=== PATIENT | male | born 1970 | race Caucasian/White ===

== ENCOUNTER 2018-06-07 09:24 | Day surgery (SDC) | END 2018-06-07 14:30 | disposition home or self-care (01) ==

== ENCOUNTER 2018-08-29 11:13 | Day surgery (SDC) | payer BC ==
[2018-08-29] VITALS (18 sets, daily range): BP systolic 91–110; BP diastolic 53–72; PULSE 46–66; RESP 12–23; Ht 177.8 cm; Wt 91.5 kg
[~2018-08-29] VITALS: Ht 177.8 cm; Wt 91.5 kg
[~2018-08-29 11:13] MED LIST: APIX5TAB PO; DIAZEPAM 5 MG TAB PO SCH; DIPHENHYDRAMINE 25 MG CAP PO SCH; FAMOTIDINE 20 MG TAB PO SCH; LISI2.5T59 PO; METO-335 PO; SOD CHLORIDE 0.45% 1,000 ML IV SCH
[2018-08-29] MEDS ORDERED: AMIO200T4 PO (11:55)
[2018-08-29] MEDS ORDERED: HEPARIN 1000 UNITS/ML 10 ML INJ ONE (12:20)
[2018-08-29] MEDS ORDERED: LIDOCAINE 1% (MDV) 20 ML INJ ONE (12:20)
[2018-08-29] MEDS ORDERED: IODIXANOL LOCM 100 ML BTL ONE (12:20)
[2018-08-29] MEDS ORDERED: FENTAnyl 50 MCG/ML VIAL ONE (12:20)
[2018-08-29] MEDS ORDERED: MIDAZOLAM 1 MG/ML 2 ML INJ ONE (12:20)
[2018-08-29] MEDS ORDERED: NITROGLYCERIN (IC) 100 MCG/ML INJ ONE (12:21)
[2018-08-29] MEDS ORDERED: VERAPAMIL 5 MG INJ ONE (12:21)
--- NOTE | 2018-08-29 14:03 | SIPON ---
Date/Time of Note Date/Time of Note DATE: 08/29/18 TIME: 14:00 Operative Report Preoperative Diagnosis 1. Cardiomyopathy Postoperative Diagnosis 1.non-obstructive cad Operation/Procedure Performed 1.[facility] Surgeon see signature line news assistant 1.Demetrio Anesthesia: moderate sedation Estimated blood loss: minimal Transfusion Required none Specimen none Grafts/Implants none Complications none COLBY JOSEPH Aug 29, 2018 14:03
[2018-08-29] MEDS ORDERED: SOD CHLORIDE 0.9% 1,000 ML IV SCH (14:05)
[2018-08-29] MEDS ORDERED: ACETAMINOPHEN 325 MG TAB PO PRN (14:30)
[2018-08-29] MEDS ORDERED: morphine 2 MG INJ IV PRN (14:30)
[2018-08-29] MEDS ORDERED: AL HYDROX/MG HYDROX/SIMETH 30 ML CUP PO PRN (14:30)
--- NOTE | 2018-08-29 16:28 | CARRPT ---
DATE OF PROCEDURE: 08/29/2018 TYPE OF PROCEDURES: 1. Left heart catheterization. 2. Coronary angiography. 3. Left ventriculogram. 4. Moderate conscious sedation. ATTENDING PHYSICIAN: Colby Leahy MD REFERRING PHYSICIAN: Self-referred. INDICATION: Cardiomyopathy with newly severely depressed left ventricular ejection fraction and posi tive stress test findings for ischemia. TYPE OF ANESTHESIA: Conscious and local. BRIEF HISTORY: Mr. Christian is a 48-year-old male with history of atrial fibrillation, hypertension, dy slipidemia, who had presented for evaluation of atrial fibrillation and then lost outpatient followup , who came back with atrial fibrillation with rapid ventricular response and in this setting, he was placed on medical therapy, improved rate control. He underwent an echo revealing a new severely depr essed EF. Given these findings, the patient was referred for and presents today in order to undergo left heart catheterization to assess possibility of significant obstructive coronary artery disease l ending to symptoms of shortness of breath and severe depressed left ventricular ejection fraction. DESCRIPTION OF PROCEDURE: After informed consent was obtained, the patient was brought to the [facility] cardiac catheterization lab where his right radial area was prepped and draped in sterile fashion. A 2% lidocaine was infiltrated into right radial area in order to achieve adequ ate anesthesia. Using the modified Seldinger technique, the radial artery was cannulated and a 6-[facility] JL3.5 catheter was used to cannulate the left main coronary ostium. With contrast injection, mul tiple views of left coronary system were obtained. JL3.5 was removed over a guidewire and a JR4 was used to cannulate the right coronary arterial ostium. With contrast injection, multiple views of the right coronary system were obtained. JR4 was removed over a guidewire and a 6-[place] pigtail was pa ssed down the ascending aorta, placed in LV. LVEDP was measured. Power injector was injected opacif perez the ventricle, 20 mL of contrast and pulled back across the aortic valve to assess for significa nt gradient, which there was not and removed. Subsequently at this time, this completed the procedur e. The patient's sheath was removed. TR band was applied. There were no noted complications. FINDINGS: Coronary angiography: Left main is 4 mm, no significant focal stenoses. Circumflex proxi pipe is a 3 mm vessel and has no significant focal stenoses. Mid branching obtuse marginal is 2.5 m m, no significant focal stenoses. LAD proximally is a 3.5 mm vessel and has mild luminal irregularit ies of 10% to 20%. Mid LAD is free of significant focal stenoses around the apex. There are mid bra nching diagonals, 2 mm vessels with no significant focal stenoses. The right coronary artery proxima lly is a 3.5 mm vessel, dominant vessel, has mild luminal irregularities 10% to 20% and gives off a 3 mm PDA and a 2.5 mm posterolateral branch which covers a long territory and has no significant focal stenoses. Left ventricular end diastolic pressure of 5 pre-LV gram, 7 post-LV gram. No aortic stenoses by grad ient. Left ventricular ejection fraction is approximately 25% with global severe hypokinesis. No si gnificant aortic stenosis by gradient. TOTAL FLUOROSCOPY TIME: 4.6 minutes. TOTAL CONTRAST: 60 mL. IMPRESSION: 1. A very mild nonobstructive coronary artery disease with essentially normal coronary arteries. 2. Low normal left heart filling pressures. 3. No significant aortic stenosis by gradient. 4. Severely depressed left ventricular systolic function. RECOMMENDATIONS: In light of procedure findings, we would: 1. Maintain the patient on Toprol and lisinopril in treatment of cardiomyopathy. 2. Continue the patient's Eliquis twice a day. 3. We will continue the patient's amiodarone at this time daily in attempt to see the patient will r eturn to sinus rhythm as patient is in atrial fibrillation at this time. 4. Followup appointment as previously scheduled in my office. Dictated By: COLBY MA/KALA Conf#: [id number] DID#: [id number]
--- NOTE | 2018-08-30 12:03 | RADRPT ---
Vent Rate: 54 bpm RR Interval: 0 msec NM Interval: 0 msec QRS Duration: 100 msec QT Interval: 452 msec QTC Interval: 428 msec P-R-T [place]: 0 - 22 - 26 degrees Atrial fibrillation with slow ventricular response Abnormal ECG Electronically Signed By: Vince Schafer [id number]
== END 2018-08-29 17:41 | disposition home or self-care (01) ==
LOC: CCL 11:13
PROVIDERS: ATTEND Internal Medicine
DX: I25.10 Atherosclerotic heart disease of native coronary artery without angina pectoris (principal); I48.91 Unspecified atrial fibrillation; I10 Essential (primary) hypertension; E78.5 Hyperlipidemia, unspecified
CPT/HCPCS: 71045; 80048; 84478; 85025; 85610; 85730; 93005; 93458; C1887; J1644; J2250; J3010; Q9967; Z7610

== ENCOUNTER 2018-12-15 09:42 | Day surgery (SDC) | payer BC ==
[~2018-12-15] VITALS: Ht 177.8 cm; Wt 92.5 kg
[2018-12-15] VITALS (17 sets, daily range): BP systolic 82–101; BP diastolic 48–63; PULSE 46–55; RESP 10–18; Ht 177.8 cm; Wt 92.5 kg
[~2018-12-15 09:42] MED LIST changes: +AMIO200T4 PO; -DIAZEPAM 5 MG TAB PO SCH; -DIPHENHYDRAMINE 25 MG CAP PO SCH; -FAMOTIDINE 20 MG TAB PO SCH; -SOD CHLORIDE 0.45% 1,000 ML IV SCH
[2018-12-15] MEDS ORDERED: SPIR25TA PO (10:11)
[2018-12-15] MEDS ORDERED: SACU1TAB7 PO (10:12)
--- NOTE | 2018-12-15 10:52 | PREAC ---
Date/Time of Note Date/Time of Note DATE: 12/15/18 TIME: 10:50 Anesthesia Eval and Record Evaluation Time Pre-Procedure Interview DATE: 12/15/18 TIME: 10:50 Age 48 Sex male NPO: 8 hrs Preoperative diagnosis atrial fibrillation Planned procedure RG, cardioversion Past Medical History Past Medical History: Includes Cardio: HTN, Arrythmia (afib), Other (cardiomyopathy, mitral regurgitation) Surgery & Anesthesia Issues No known issue Meds Anticoagulation: Yes Beta Lenora within 24 hr: Yes Reason Beta Lenora not given: Bradycarida, Hypotension Reported Medications Sacubitril/Valsartan (Entresto 49 mg-51 mg Tablet) 1 Each Tablet, 1 EACH PO BID, TAB 12/15/18 Spironolactone* (Aldactone*) 25 Mg Tablet, 12.5 MG PO DAILY, #30 TAB 12/15/18 Amiodarone Hcl* (Amiodarone Hcl*) 200 Mg Tablet, 200 MG PO DAILY, #30 TAB 08/29/18 Metoprolol Succinate* (Toprol XL*) 25 Mg Tab.sr.24h, 25 MG PO DAILY, #30 TAB 06/07/18 Apixaban* (Eliquis*) 5 Mg Tablet, 5 MG PO BID, TAB 06/07/18 Discontinued Reported Medications Lisinopril* (Lisinopril*) 2.5 Mg Tablet, 2.5 MG PO DAILY, #30 TAB 06/07/18 Meds reviewed: Yes Allergies Coded Allergies: No Known Allergy (Unverified , 08/29/18) Allergies Reviewed: Yes Labs/Studies Labs Reviewed: Reviewed by anesthesiologist Result Diagram: 12/15/18 1030 Laboratory Tests 12/15/18 10:30 test: N/A Pre-procedure Exam Airway: Adequate mouth opening, Adequate thyromental dist Mallampati: Mallampati II Teeth: Normal Lung: Normal Heart: Normal ASA Physical Status ASA physical status: 3 Emergency: None Planned Anesthetic General/MAC: Mask Planned Pain Management Parenteral pain med Pre-operative Attestations Prior to commencing anesthesia and surgery, the patient was re-evaluated, there was verification of: *The patient's identity *The results of appropriate recent lab work and preoperative vital signs *The above evaluation not changing prior to induction *Anesthetic plan, risk benefits, alternative and complications discussed with patient/family; questions answered; patient/family understands, accepts and wishes to proceed. KELECHI KRISHNAN MD Dec 15, 2018 10:52
[2018-12-15] MEDS ORDERED: MIDAZOLAM 1 MG/ML 2 ML INJ ONE (10:53)
[2018-12-15] MEDS ORDERED: LIDOCAINE 2% (SDV) 5 ML INJ ONE (10:53)
[2018-12-15] MEDS ORDERED: PROPOFOL 20 ML ONE (10:54)
[2018-12-15] MEDS ORDERED: GLYCOPYRROLATE 0.4 MG INJ ONE (11:05)
[2018-12-15] MEDS ORDERED: EPHEDrine SULFATE 50 MG/5 ML SYG ONE (11:05)
--- NOTE | 2018-12-15 11:21 | SIPON ---
Date/Time of Note Date/Time of Note DATE: 12/15/18 TIME: 11:18 Operative Report Preoperative Diagnosis 1.AF Postoperative Diagnosis 1.successful DCCV from AF to SR 2.RG with no definite LA/FELICE thrombus Operation/Procedure Performed 1.RG 2.DCCV AF to SR Surgeon see signature line university administrative assistant 1.[place] Anesthesia: moderate sedation Estimated blood loss: minimal Transfusion Required none Specimen none Grafts/Implants none Complications none COLBY JOSEPH Dec 15, 2018 11:21
--- NOTE | 2018-12-15 11:33 | PAC ---
Date/Time of Note Date/Time of Note DATE: 12/15/18 TIME: 11:33 Post-Anesthesia Notes Post-Anesthesia Note Last documented vital signs Vital Signs Date Temp Pulse Resp B/P (MAP) Pulse Ox O2 O2 Flow FiO2 Time Delivery Rate 12/15/18 98.1 55 16 97/63 (74) 97 Room Air 10:47 Activity: WNL Respiratory function: WNL Cardiovascular function: WNL Mental status: Baseline Pain reasonably controlled: Yes Hydration appropriate: Yes Nausea/Vomiting absent: Yes Comments BP: 95/58 HR: 60 RR: 15 T: 98 SaO2: 99% KELECHI KRISHNAN MD Dec 15, 2018 11:33
[2018-12-15] MEDS ORDERED: MEPERIDINE 25 MG INJ IV PRN (12:00)
[2018-12-15] MEDS ORDERED: PROCHLORPERAZINE 10 MG INJ IV PRN (12:00)
[2018-12-15] MEDS ORDERED: HYDROmorphONE 1 MG/5 ML IV SYRINGE IV PRN ×2 (12:00)
[2018-12-15] MEDS ORDERED: DIPHENHYDRAMINE 50 MG INJ IV PRN (12:00)
[2018-12-15] MEDS ORDERED: FENTAnyl 50 MCG/ML VIAL IV PRN (12:00)
[2018-12-15] MEDS ORDERED: ONDANSETRON 4 MG INJ IV PRN (12:00)
--- NOTE | 2018-12-15 15:57 | CARRPT ---
DATE OF PROCEDURE: 12/15/2018 TYPE OF PROCEDURES: 1. Transesophageal echo. 2. Direct current cardioversion for atrial fibrillation to sinus rhythm. ATTENDING PHYSICIAN: Colby Leahy MD REFERRING PHYSICIAN: Self-referred. INDICATION: Atrial fibrillation, symptomatic. TYPE OF ANESTHESIA: MAC under direction of anesthesiologist at bedside. BRIEF HISTORY: Mr. Christian is a 48-year-old male with history of hypertension, atrial fibrillation, re cent onset of nonischemic cardiomyopathy with severe depressed left ventricular ejection fraction, wh o presents with symptomatic atrial fibrillation refractory to medical therapy. DESCRIPTION OF PROCEDURE: After informed consent was obtained, the patient was brought to the [facility] cardiac catheterization lab holding room where he was connected to continuous telemetry monitoring and continuous O2 saturation monitoring and blood pressure cuff for cycling ever y 3 to 5 minutes. The patient had a bite block placed in his mouth under direction of anesthesiologi st at bedside and was given MAC anesthesia with propofol in order to achieve adequate local anesthesi a. Subsequently at this time, the patient's esophagus was intubated with transesophageal probe and u sing multiplanar imaging and color flow Doppler interrogation, the patient's intracardiac structures were adequately interrogated. The trans echo probe was removed and the patient was already connected to the pads that are placed on sync mode and the patient received initial shock at 100 joules unsucc essful, a second shock of 150 joules unsuccessful and finally a shock at 200 joules which was success ful in converting him to sinus rhythm. Subsequently at this time, the patient was allowed to awake f rom his anesthetized state. This completed the procedure. There were no noted complications. FINDINGS: Transesophageal echo revealed no definite findings of left atrial or left atrial appendage thrombus, left atrial appendage velocity of approximately 40 cm per second. Additionally, no defini te findings of left ventricular thrombus and left ventricular ejection fraction appears mildly improv ed to approximately 30%. Direct current cardioversion, the patient received 3 shocks, 100, 150 and finally 200 joules all in s ync mode with the final shock successful converting him to sinus rhythm. IMPRESSION: 1. No definite findings of left atrial appendage or left ventricular thrombus. 2. Successful direct current cardioversion from atrial fibrillation to sinus rhythm with 200-joule s hock. RECOMMENDATIONS: 1. At this time, patient will be allowed to awake from his anesthetized state and when he is tolerat ing a p.o. dose and is adequately recovered from anesthesia, the patient is allowed to be discharged. 2. The patient will have a followup appointment in my office to reassess the patient's rhythm. 3. The patient should remain on his baseline Eliquis, amiodarone and beta blockers. Dictated By: COLBY MA/KALA Conf#: [id number] DID#: [id number]
--- NOTE | 2018-12-18 01:10 | RADRPT ---
Vent Rate: 50 bpm RR Interval: 1192 msec GA Interval: 215 msec QRS Duration: 95 msec QT Interval: 485 msec QTC Interval: 444 msec P-R-T [place]: 51 - 13 - 30 degrees Sinus rhythm...normal P axis, V-rate 50- 99 Prolonged GA interval...GA >210, V-rate 50- 90 Probable left atrial enlargement...P >50mS, <-0.10mV V1 Electronically Signed By: Vince Schafer
== END 2018-12-15 13:44 | disposition home or self-care (01) ==
LOC: CCL 09:42 → SDS 09:42 → CCL 13:44
PROVIDERS: ATTEND Internal Medicine
DX: I48.0 Paroxysmal atrial fibrillation (principal); I10 Essential (primary) hypertension; I42.9 Cardiomyopathy, unspecified
CPT/HCPCS: 80048; 85025; 85610; 85730; 92960; 93005; 93312; 93320; J2250; Z7610

== ENCOUNTER 2019-04-17 18:53 | Emergency (ER) | payer BC ==
[~2019-04-17] VITALS: Ht 177.8 cm; Wt 95.3 kg
[~2019-04-17 18:53] MED LIST changes: -LISI2.5T59 PO; +SACU1TAB PO; +SACU1TAB7 PO; +SPIR25TA PO
[2019-04-17 18:58] VITALS: Ht 177.8 cm; Wt 95.3 kg
[2019-04-17 22:45] VITALS: BP 102/61; PULSE 78; RESP 16
== END 2019-04-17 22:45 | disposition home or self-care (01) ==
LOC: E/R 18:53
DX: R20.0 Anesthesia of skin (principal); R22.0 Localized swelling, mass and lump, head; R00.1 Bradycardia, unspecified; Z79.01 Long term (current) use of anticoagulants
CPT/HCPCS: 36415; 70450; 71045; 80048; 84484; 85025; 93005